=== PATIENT | female | born 1955 | race Caucasian/White ===

== ENCOUNTER → 2017-10-07 | Outpatient (CLI) | payer OTHER ==
--- NOTE | 2017-10-07 16:11 | Diagnostic Imaging Report ---
Digital mammogram bilateral screening. This study was compared to the prior exams of 08/04/2016, 08/06/2015, and 06/28/2014. At this time, there are no current complaints. The current study was also evaluated with a Computer Aided Detection (CAD) system. FINDINGS: The fibroglandular tissue in both breasts is heterogeneously dense. This does limit the sensitivity of this exam. On the craniocaudal view of the right breast deep in the mid lateral aspect of the breast approximately 10 cm from nipple there is a 4 mm nodular density. This finding is difficult to identify with certainty on the MLO view but seems to persist on the tomographic images. I suspect that this is either related to fibroglandular tissue or to a benign process. Even so, I would recommend that a compression view of this area be obtained in the CC projection as well as a true lateral view of the right breast for further study. Ultrasound should also be performed. The left breast is unchanged. IMPRESSION: Additional mammographic views and ultrasound of the right breast will be recommended for further study. ACR BI-RADS Category 0: Incomplete. (Needs additional imaging evaluation). Result letter will be mailed to the patient. Note: At least 10% of breast cancer is not imaged by mammography. Dictated by: Dictated on workstation # [id number]
== END ==
LOC: RAD 08:47
PROVIDERS: ATTEND Nurse Practitioner
DX: Z12.31 Encounter for screening mammogram for malignant neoplasm of breast (principal)
CPT/HCPCS: 77067

== ENCOUNTER → 2017-11-04 | Outpatient (CLI) | payer OTHER ==
--- NOTE | 2017-11-04 12:41 | Diagnostic Imaging Report ---
Indication: Right breast density. The study is performed for further evaluation. Correlation is made with diagnostic mammogram earlier the same day. Sonographic interrogation of the outer portion of the right breast posterior depth was performed. No sonographic abnormality is seen. No solid or cystic mass is detected to correspond to the mammographic density. Impression: BI-RADS category 3 No sonographic abnormality is identified. A followup right mammogram in 6 months is recommended to confirm stability of the tiny circumscribed density in the far posterior and outer aspect of the right breast. ACR BI-RADS Category 3: Probably benign findings. Result letter will be mailed to the patient. Note: At least 10% of breast cancer is not imaged by mammography. Dictated by: Dictated on workstation # [id number]
--- NOTE | 2017-11-04 12:43 | Diagnostic Imaging Report ---
Indication: Right breast density. The patient presents for additional views. Correlation is made with recent screening study from 10/07/2017. The patient returned and a rolled CC as well as spot compression CC and medial and lateral views of the right breast were obtained utilizing 3-D mammography. Tiny density in the far posterior aspect of the right breast slightly lateral to the nipple line persists. It is uncertain if this represents fibroglandular tissue versus a true nodule. No other abnormalities are seen. Impression: BI-RADS 0 Tiny circumscribed density in the far posterior right breast just lateral to the nipple line. Further evaluation with ultrasound is recommended. ACR BI-RADS Category 0: Incomplete. (Needs additional imaging evaluation). Result letter will be mailed to the patient. Note: At least 10% of breast cancer is not imaged by mammography. Dictated by: Dictated on workstation # [id number]
== END ==
LOC: RAD 08:09
PROVIDERS: ATTEND Nurse Practitioner
DX: N63.10 Unspecified lump in the right breast, unspecified quadrant (principal)

== ENCOUNTER → 2019-08-15 | Outpatient (CLI) | payer OTHER ==
--- NOTE | 2019-08-15 12:55 | Diagnostic Imaging Report ---
INDICATION: Follow-up right breast density. Correlation is made with prior mammograms 10/07/2017 and 08/04/2016. 2-D and 3-D bilateral diagnostic mammography was performed with CAD. Both breasts remain heterogeneously dense, limiting the sensitivity of mammography. Tiny density in the far posterior outer right breast is no longer visualized. No new mass or malignant appearing microcalcifications are seen. There are benign calcifications bilaterally. Axillae are unremarkable. IMPRESSION: BI-RADS Category 2 No mammographic features suspicious for malignancy are identified. ACR BI-RADS Category 2: Benign findings. Result letter will be mailed to the patient. Note: At least 10% of breast cancer is not imaged by mammography. Dictated by: Dictated on workstation # [id number]
== END ==
LOC: RAD 12:23
PROVIDERS: ATTEND Family Medicine
DX: R92.1 Mammographic calcification found on diagnostic imaging of breast (principal)
CPT/HCPCS: 77066

== ENCOUNTER → 2022-12-15 | Outpatient (CLI) | payer MEDICARE ==
--- NOTE | 2022-12-15 14:20 | Diagnostic Imaging Report ---
INDICATION: Previous abnormal mammogram. Comparison is made with prior mammogram 08/15/2019 and 10/07/2017. 2-D and 3-D bilateral screening mammography was performed with CAD. CAD is utilized. The current study was also evaluated with a Computer Aided Detection (CAD) system. Both breasts are heterogeneously dense, limiting the sensitivity of mammography. No dominant mass or malignant-appearing microcalcifications are seen. Axillae are unremarkable. IMPRESSION: BI-RADS Category 1 No mammographic features suspicious for malignancy are identified. ACR BI-RADS Category 1: Negative. Result letter will be mailed to the patient. Note: At least 10% of breast cancer is not imaged by mammography. Dictated by: Dictated on workstation # [id number]
== END ==
LOC: RAD 13:05
PROVIDERS: ATTEND Family Medicine
DX: R92.8 Other abnormal and inconclusive findings on diagnostic imaging of breast (principal)
CPT/HCPCS: 77066; G0279; 77062